=== PATIENT | male | born 1980 | race Two or more races ===

== ENCOUNTER 2017-05-13 13:35 | Emergency (ER) | payer SELFPAY ==
[~2017-05-13] VITALS: Ht 170.2 cm; Wt 93.0 kg
[2017-05-13] MEDS ORDERED: ACETAMINOPHEN 500 MG TAB PO ONE (13:39)
[2017-05-13] MEDS ORDERED: ACETAMINOPHEN 325 MG TAB PO ONE (13:45)
[2017-05-13 13:47] VITALS: BP 154/84
[2017-05-13] MEDS ORDERED: methylPREDNISolone SOD SUCC 125 MG/2 ML VL IM ONE (15:45)
[2017-05-13] MEDS ORDERED: cefTRIAXone SOD 1,000 MG VL IM ONE (15:45)
[2017-05-13] MEDS ORDERED: NEOMYCIN-BACITRACIN-POLYM UNITDOSE PKG TOP OINT TOP ONE (16:15)
== END 2017-05-13 16:29 | disposition home or self-care (01) ==
LOC: ER 13:35
DX: J20.9 Acute bronchitis, unspecified (principal); J03.90 Acute tonsillitis, unspecified
CPT/HCPCS: 71020; 96372; 99284; J0696; J2930